=== PATIENT | male | born 1960 | race Caucasian/White ===

== ENCOUNTER 2024-06-03 23:29 | Emergency (ER) | payer SELFPAY ==
[~2024-06-03] VITALS: Ht 167.6 cm; Wt 80.0 kg
[2024-06-03 23:37] VITALS: O2SAT 100
[2024-06-04 00:01] VITALS: BP 139/76; PULSE 50; RESP 20; TEMP 98.4; O2SAT 100
[2024-06-04] MEDS ORDERED: TELM40TA7 MT (01:06)
== END 2024-06-04 01:13 | disposition home or self-care (01) ==
LOC: ER 23:29
DX: I10 Essential (primary) hypertension (principal); Z76.0 Encounter for issue of repeat prescription
CPT/HCPCS: 99283